=== PATIENT | male | born 1995 | race African-American/Black ===

== ENCOUNTER → 2024-02-07 | Emergency (ER) | payer OTHER ==
[~2024-02-07] MED LIST: ACETAMINOPHEN 500 MG TAB ONE
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
--- NOTE | 2024-02-07 18:44 | RAD REPORT ---
EXAM DESCRIPTION: Ramon Single View02/07/2024 6:20 pm CLINICAL HISTORY: Chest pain COMPARISON: none FINDINGS: The lungs appear clear of acute infiltrate. The heart is normal size IMPRESSION: No acute abnormalities displayed
--- NOTE | 2024-02-07 18:45 | RAD REPORT ---
EXAM DESCRIPTION: RAD - Shoulder Left 2 View - 02/07/2024 6:20 pm CLINICAL HISTORY: Left shoulder pain FINDINGS: No fracture or dislocation is seen.
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
[2024-02-07 20:10] VITALS: O2SAT 100
[2024-02-07 20:41] VITALS: BP 136/93; TEMP 98.1
== END ==
LOC: ER 17:24
DX: S00.83XA Contusion of other part of head, initial encounter (principal); S40.012A Contusion of left shoulder, initial encounter
CPT/HCPCS: 70450; 70486; 71045; 76377; 99283